=== PATIENT | male | born 1955 | race Caucasian/White ===

== ENCOUNTER 2016-07-30 19:32 | Emergency (ER) | payer MEDICARE, OTHER ==
--- NOTE | ~2016-07-30 | CR141 ---
[facility] A Service of [facility] & [facility] RADIOLOGY TEXT RESULTS PATIENT: RHETT HEARN LOCATION: [facility] : 57 UNIT #: [id number] AGE: [address]: Malathi Strange MD SEX: M ORDER DR: [id number] [facility] [address] [place]. [place], [place] [address] [id number] E MR#: [id number] Acc #: [id number] NAME: RHETT HEARN : 1955 SEX: M STUDY DATE/TIME: 07/30/2016 21:50 UNIT: [facility] ROOM: STUDY DESCRIPTION: CR Hand Min 3 Views Lt Attending Physician: Malathi Strange M.D. Ordering Physician: Malathi Strange M.D. Primary Care Physician: Primary Care Physician No MEDICAL IMAGING REPORT This report is preliminary unless electronic signature is present EXAM Left hand series INDICTIONS Swelling index finger today. Left hand. FINDINGS AP lateral and oblique radiographs of the left hand are presented. Status post open reduction internal fixation distal left radial fracture. Visualized portions of fixation plate and multiple fixation screws appear intact. Previous radial fracture plane no longer evident. 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 Focal lucency at the distal ulna has well-defined margins and may represent degenerative cyst, a simple bone cyst, or perhaps given findings elsewhere, bony erosive change. Please correlate with any known history of inflammatory arthritis. The second digit is abnormal. There is extensive soft tissue swelling more pronounced distally but severe overall. There is absence of the middle third of the distal phalanx. The appearance is not consistent with acute or subacute fracture. The appearance suggests some form of destructive process and given the overlying soft tissue swelling, possibility of osteomyelitis could be considered. Please correlate with any known trauma to the digit. The appearance is not consistent with typical appearance of inflammatory arthritides and aside from the ulnar abnormality described above, no other potential erosive or bony resorptive abnormalities are seen. There is a lucency extending through the radial aspect of the base of the distal phalanx of the second digit and if this is an infectious process, possibility of extension into the distal interphalangeal joint space is not excluded. The proximal interphalangeal joint is normal. The second digit proximal and middle phalanges appear normal. If it would assist in management, the digit could be further evaluated with MRI. There is no soft tissue defect, subcutaneous air or radiodense foreign body. Remaining digits unremarkable. [facility]. [facility] A Service of [facility] RADIOLOGY TEXT RESULTS PATIENT: RHETT HEARN LOCATION: [facility] : 57 UNIT #: [id number] AGE: [address]: Malathi Strange MD SEX: M ORDER DR: Dictated by... Nilton Iraheta M.D. THIS IS AN ELECTRONICALLY VERIFIED REPORT Nilton Iraheta M.D. at 08/01/2016 5:16 PM Silva TD: 07/31/2016 09:13 JOB #: [id number] MEDICAL IMAGING REPORT Page 1 of 1 COPY
[~2016-07-30 19:32] MED LIST: FOLIC ACID1 MG PO; KEFLEX500 M2 PO; LORTAB 5-325 M1 EACH PO; NEURONTIN300 MG PO
[2016-07-30 20:20] LABS: BASOPHIL# 0.1 X10e3 (0-0.3); BASOPHIL% 0.4 % (0-2.5); EOSINOPHIL# 0.2 X10e3 (0-0.7); HEMATOCRIT 37.1 % (38.0-50.0); HEMOGLOBIN 11.9 gm/dL (13.0-16.0); LYMPHOCYTE# 0.5 X10e3 (1.0-3.5); LYMPHOCYTE% 2.3 % (17.0-45.0); MEAN CORPUSCULAR HEMOGLOBIN 31.4 PG (28-34); MEAN PLATELET VOLUME 7.3 FL (6.5-11.5); MONOCYTE% 4.5 % (3.0-12.0); NEUTROPHIL# 20.4 X10e3 (1.5-7.1); NEUTROPHIL% 91.8 % (40-75); PLATELET COUNT 327 X10e3 (140-420); RED BLOOD COUNT 3.79 X10e (3.90-5.60); RED CELL DISTRIBUTION WIDTH 13.5 % (11.0-15.5); WHITE BLOOD COUNT 22.2 X10e3 (4.0-10.5)
[2016-07-30 20:21] LABS: DIFF IND YES
[2016-07-30 20:34] LABS: ALBUMIN SERUM 3.4 g/dL (3.5-5.0); ALKALINE PHOSPHATASE 98 U/L (32-92); ALT (SGPT) 15 U/L (10-40); AST (SGOT) 22 U/L (10-42); BILIRUBIN, DIRECT 0.1 mg/dL (0.0-0.2); BILIRUBIN,INDIRECT 0.1 mg/dL (0.0-0.9); BILIRUBIN,TOTAL 0.2 mg/dL (0.2-2.0); BLOOD UREA NITROGEN 16 mg/dL (9-23); BUN/CREATININE RATIO 11.42; CALCIUM SERUM 8.4 mg/dL (8.4-10.2); CARBON DIOXIDE 27 mmol/L (22-31); CHLORIDE 100 mmol/L (100-111); CREATININE SERUM 1.4 mg/dL (0.6-1.4); GLOM FILT RATE Estimated 54.6 mL/min (>60); GLUCOSE FASTING 81 mg/dL (70-110); POTASSIUM 3.5 mmol/L (3.5-5.1); PROTEIN TOTAL SERUM 7.1 g/dL (6.0-8.3); SODIUM 138 mmol/L (135-145)
[2016-07-30 20:36] LABS: ALCOHOL BLOOD <5 mg/dL (0)
[2016-07-30 20:42] LABS: PLATELET ESTIMATE NORMAL (NORMAL); RBC NORMAL YES
== END 2016-07-31 01:58 ==
LOC: CED 19:32
PROVIDERS: Student in an Organized Health Care Education/Training Program
DX: T40.1X1A Poisoning by heroin, accidental (unintentional), initial encounter (principal); M86.9 Osteomyelitis, unspecified; Z79.899 Other long term (current) drug therapy
CPT/HCPCS: 36415; 73130; 80048; 80076; 85025; 96372; 99285; G0480; J2543; J3370; J3486